=== PATIENT | female | born 1940 | race Caucasian/White ===

== ENCOUNTER 2017-09-17 14:32 | Outpatient (CLI) | payer OTHER ==
--- NOTE | 2017-09-17 19:39 | DI ---
Exam: Chest two-view HISTORY: Bronchitis. FINDINGS: Two views of the chest demonstrate moderately expanded lungs with no evidence of pneumonia or edema. The heart is normal in size and configuration. The thoracic aorta is partially calcified . Calcified granulomata are noted. The pulmonary vasculature is not congested. The skeletal structu res are intact. There are degenerative findings in the spine. Surgical clips are noted in the lower n livier. IMPRESSION: No acute cardiopulmonary disease. Atherosclerosis and prior granulomatosis.
== END 2017-09-17 14:33 | disposition home or self-care (01) ==
LOC: RAD 14:32
PROVIDERS: ATTEND Family Medicine
DX: J40 Bronchitis, not specified as acute or chronic (principal)